=== PATIENT | female | born 1965 | race Caucasian/White ===

== ENCOUNTER 2016-06-29 14:28 | Emergency (ER) | payer MEDICAID ==
[2016-06-29] MEDS ORDERED: LIDOCAINE/EPI 1% MDV 20 ML ONE (15:17)
[2016-06-29] MEDS ORDERED: KETOROLAC 60 MG/2 ML VIAL IM ONE (15:31)
== END 2016-06-29 16:06 | disposition home or self-care (01) ==
LOC: ER 14:28
DX: L03.111 Cellulitis of right axilla (principal); L02.411 Cutaneous abscess of right axilla; F17.210 Nicotine dependence, cigarettes, uncomplicated
CPT/HCPCS: 96372